=== PATIENT | female | born 1985 | race Two or more races ===

== ENCOUNTER 2021-04-10 17:24 | Emergency (ER) | payer BC, OTHER, SELFPAY ==
--- NOTE | 2021-04-10 18:25 | CR ---
Chest: Frontal view of the chest was obtained. Comparison: Prior chest x-ray of 02/16/13. Heart size and mediastinum are normal. Vague densities are seen within both lung bases. Difficult to completely exclude small area of pneumonia based on this exam. Upper lungs are clear. Bony structures appear unremarkable. Impression: 1. Slight density within both lung bases. Difficult to exclude mild pneumonia if patient has correlating symptoms. 2. Frontal chest x-ray is otherwise unremarkable. Diagnostic code #3
--- NOTE | 2021-04-10 20:30 | EDM.PDOC ---
ED HPI GENERAL MEDICAL PROBLEM - General Chief Complaint: Respiratory Problem Stated Complaint: cough sob ear pain Time Seen by Provider: 04/10/21 17:35 Source of Information: Reports: Patient, RN Notes Reviewed History Limitations: Reports: No Limitations - History of Present Illness INITIAL COMMENTS - FREE TEXT/NARRATIVE: Patient is a 36-year-old female presenting to the emergency department with complaints of a 1 month history of dry cough, left ear pain, shortness of breath, and sore throat. She reports intermittent fevers and occasional diarrhea as well. She has been evaluated in the walk-in clinic as well as by her primary care provider and was told that she had viral illness. She was tested for Covid twice and this was found to be negative. She does not feel her symptoms have improved at all over the course of last month, however she states that the fever has resolved. She has a history of hypertension but denies any other underlying chronic medical conditions. Left Ear Pain Score (Numeric/FACES): 7 - Related Data Allergies Allergy/AdvReac Type Severity Reaction Status Date / Time No Known Allergies Allergy Verified 04/10/21 17:44 Home Meds: Home Meds Azithromycin 250 mg PO ASDIRECTED 5 Days #6 tablet 04/10/21 [Rx] L.acidoph,Paracasei, B.lactis [Probiotic] 1 each PO DAILY 04/10/21 [History] Losartan [Cozaar] 50 mg PO DAILY 04/10/21 [History] desog-e.estradioL/e.estradioL [Volnea 0.15-0.02-0.01 mg Tab] 1 tab PO DAILY 04/10/21 [History] Past Medical History Cardiovascular History: Reports: Hypertension CYCLE DIRECTOR History: Reports: Hematologic History: Reports: Anemia - Infectious Disease History Infectious Disease History: Reports: Chicken Pox - Past Surgical History GI Surgical History: Reports: Appendectomy, Bariatric Procedure, Cholecystectomy, Hernia Repair/Other Female Surgical History: Reports: Breast Implant, Section, Tubal Ligation Social & Family History - Family History Family Medical History: No Pertinent Family History - Tobacco Use Tobacco Use Status *Q: Never Tobacco User - Caffeine Use Caffeine Use: Reports: Coffee, Soda - Recreational Drug Use Recreational Drug Use: No ED ROS GENERAL - Review of Systems Review Of Systems: See Below Constitutional: Reports: Fatigue. Denies: Fever, Chills HEENT: Reports: Ear Pain, Throat Pain. Denies: Throat Swelling Respiratory: Reports: Shortness of Breath, Cough. Denies: Wheezing Cardiovascular: Reports: No Symptoms Endocrine: Reports: No Symptoms GI/Abdominal: Reports: No Symptoms : Reports: No Symptoms Musculoskeletal: Reports: No Symptoms Skin: Reports: No Symptoms Neurological: Reports: No Symptoms Psychiatric: Reports: No Symptoms Hematologic/Lymphatic: Reports: No Symptoms Immunologic: Reports: No Symptoms ED EXAM, GENERAL - Physical Exam Exam: See Below Exam Limited By: No Limitations General Appearance: Alert, WD/WN, No Apparent Distress Throat/Mouth: Normal Inspection, Normal Lips, Normal Teeth, Normal Gums, Normal Oropharynx, Normal Voice, No Airway Compromise Respiratory/Chest: No Respiratory Distress, Lungs Clear, Normal Breath Sounds, No Accessory Muscle Use, Chest Non-Tender Cardiovascular: Normal Peripheral Pulses, Regular Rate, Rhythm, No Edema, No Gallop, No JVD, No Murmur, No Rub Neurological: Alert, Oriented, CN II-XII Intact, Normal Cognition, Normal Gait, Normal Reflexes, No Motor/Sensory Deficits Psychiatric: Normal Affect, Normal Mood Skin Exam: Warm, Dry, Intact, Normal Color, No Rash Course - Vital Signs Last Recorded V/S: Last Vital Signs Temp 97.7 F 04/10/21 17:40 Pulse 79 04/10/21 17:40 Resp 16 04/10/21 17:40 BP 182/106 H 04/10/21 17:40 Pulse Ox 98 04/10/21 17:40 - Orders/Labs/Meds Labs: Laboratory Tests 04/10/21 04/10/21 04/10/21 Range/Units 18:20 18:20 18:25 WBC 9.16 (3.98-10.04) K/mm3 RBC 4.33 (3.98-5.22) M/mm3 Hgb 10.9 L D (11.2-15.7) gm/dl Hct 35.1 (34.1-44.9) % MCV 81.1 D (79.4-94.8) fl MCH 25.2 L (25.6-32.2) pg MCHC 31.1 L (32.2-35.5) g/dl RDW Std Deviation 44.8 (36.4-46.3) fL Plt Count 357 (182-369) K/mm3 MPV 9.5 (9.4-12.3) fl Neut % (Auto) 52.8 (34.0-71.1) % Lymph % (Auto) 34.6 (19.3-51.7) % [place] % (Auto) 10.7 (4.7-12.5) % Eos % (Auto) 1.5 (0.7-5.8) Baso % (Auto) 0.2 (0.1-1.2) % Neut # (Auto) 4.83 (1.56-6.13) K/mm3 Lymph # (Auto) 3.17 (1.18-3.74) K/mm3 [place] # (Auto) 0.98 H (0.24-0.36) K/mm3 Eos # (Auto) 0.14 (0.04-0.36) K/mm3 Baso # (Auto) 0.02 (0.01-0.08) K/mm3 Manual Slide Review Sodium 140 (136-145) mEq/L Potassium 4.0 (3.5-5.1) mEq/L Chloride 106 (98-107) mEq/L Carbon Dioxide 26 (21-32) mEq/L Anion Gap 12.0 (5-15) BUN 14 (7-18) mg/dL Creatinine 0.8 (0.55-1.02) mg/dL Est Cr Clr Drug Dosing 91.88 mL/min Estimated GFR (MDRD) > 60 (>60) mL/min BUN/Creatinine Ratio 17.5 (14-18) Glucose 79 (70-99) mg/dL Calcium 8.5 (8.5-10.1) mg/dL Total Bilirubin 0.2 (0.2-1.0) mg/dL AST 25 (15-37) U/L ALT 15 (14-59) U/L Alkaline Phosphatase 61 (46-116) U/L C-Reactive Protein 0.5 (<1.0) mg/dL Total Protein 8.3 H (6.4-8.2) g/dl Albumin 3.3 L (3.4-5.0) g/dl Globulin 5.0 gm/dL Albumin/Globulin Ratio 0.7 L (1-2) Urine Color (Yellow) Urine Appearance (Clear) Urine pH (5.0-8.0) Ur Specific [place] (1.005-1.030) Urine Protein (Negative) Urine Glucose (UA) (Negative) Urine Ketones (Negative) Urine Occult Blood (Negative) Urine Nitrite (Negative) Urine Bilirubin (Negative) Urine Urobilinogen (0.2-1.0) Ur Leukocyte Esterase (Negative) Urine RBC (0-5) /hpf Urine WBC (0-5) /hpf Ur Squamous Epith Cells (0-5) /hpf Urine Bacteria (FEW) /hpf Urine Mucus (FEW) /hpf Urine HCG, Qual (NEGATIVE) SARS-CoV-2 RNA (ANETA) Negative (NEGATIVE) 04/10/21 04/10/21 Range/Units 18:25 18:25 WBC (3.98-10.04) K/mm3 RBC (3.98-5.22) M/mm3 Hgb (11.2-15.7) gm/dl Hct (34.1-44.9) % MCV (79.4-94.8) fl MCH (25.6-32.2) pg MCHC (32.2-35.5) g/dl RDW Std Deviation (36.4-46.3) fL Plt Count (182-369) K/mm3 MPV (9.4-12.3) fl Neut % (Auto) (34.0-71.1) % Lymph % (Auto) (19.3-51.7) % [place] % (Auto) (4.7-12.5) % Eos % (Auto) (0.7-5.8) Baso % (Auto) (0.1-1.2) % Neut # (Auto) (1.56-6.13) K/mm3 Lymph # (Auto) (1.18-3.74) K/mm3 [place] # (Auto) (0.24-0.36) K/mm3 Eos # (Auto) (0.04-0.36) K/mm3 Baso # (Auto) (0.01-0.08) K/mm3 Manual Slide Review Sodium (136-145) mEq/L Potassium (3.5-5.1) mEq/L Chloride (98-107) mEq/L Carbon Dioxide (21-32) mEq/L Anion Gap (5-15) BUN (7-18) mg/dL Creatinine (0.55-1.02) mg/dL Est Cr Clr Drug Dosing mL/min Estimated GFR (MDRD) (>60) mL/min BUN/Creatinine Ratio (14-18) Glucose (70-99) mg/dL Calcium (8.5-10.1) mg/dL Total Bilirubin (0.2-1.0) mg/dL AST (15-37) U/L ALT (14-59) U/L Alkaline Phosphatase (46-116) U/L C-Reactive Protein (<1.0) mg/dL Total Protein (6.4-8.2) g/dl Albumin (3.4-5.0) g/dl Globulin gm/dL Albumin/Globulin Ratio (1-2) Urine Color Light yellow (Yellow) Urine Appearance Clear (Clear) Urine pH 6.5 (5.0-8.0) Ur Specific [place] 1.020 (1.005-1.030) Urine Protein Negative (Negative) Urine Glucose (UA) Negative (Negative) Urine Ketones Negative (Negative) Urine Occult Blood 1+ H (Negative) Urine Nitrite Negative (Negative) Urine Bilirubin Negative (Negative) Urine Urobilinogen 0.2 (0.2-1.0) Ur Leukocyte Esterase Negative (Negative) Urine RBC 5-10 H (0-5) /hpf Urine WBC 0-5 (0-5) /hpf Ur Squamous Epith Cells 10-20 H (0-5) /hpf Urine Bacteria Few (FEW) /hpf Urine Mucus Few (FEW) /hpf Urine HCG, Qual Negative (NEGATIVE) SARS-CoV-2 RNA (ANETA) (NEGATIVE) - Re-Assessments/Exams Free Text/Narrative Re-Assessment/Exam: 04/10/21 20:27 Hematology is significant for hemoglobin low at 10.9. It is unremarkable. Urinalysis is negative for infection. Chest x-ray shows slight density within both lung bases. Difficult to exclude mild pneumonia if patient has correlating symptoms. Given patient's history of 1 month cough. She will be treated for community-acquired pneumonia with azithromycin. Prescription of this will be sent to [facility]. Discussed if symptoms fail to improve at the conclusion of treatment, she should follow-up in the clinic. Discharge instructions as documented. Departure - Departure Time of Disposition: 20:29 Disposition: Home, Self-Care 01 Condition: Good Clinical Impression: Pneumonia Qualifiers: Pneumonia type: due to unspecified organism Laterality: bilateral Lung location: lower lobe of lung Qualified Code(s): J18.9 - Pneumonia, unspecified organism - Discharge Information *PRESCRIPTION DRUG MONITORING PROGRAM REVIEWED*: No *COPY OF PRESCRIPTION DRUG MONITORING REPORT IN PATIENT BARNEY: No Prescriptions: Azithromycin 250 mg PO ASDIRECTED 5 Days #6 tablet Instructions: Community-Acquired Pneumonia, Adult Referrals: Roselyn Lucas TELEPHONE BETTING CLERK [Primary Care Provider] - Forms: ED Department Discharge Additional Instructions: Take azithromycin as prescribed. You may use Tylenol and ibuprofen as needed for discomfort. You may also continue Flonase as needed. If symptoms fail to resolve by the conclusion of treatment, please follow-up in clinic. Return to ER as needed. Sepsis Event Note (ED) - Evaluation Sepsis Screening Result: No Definite Risk
== END 2021-04-10 20:45 | disposition home or self-care (01) ==
LOC: JD.ED 17:24
DX: J18.9 Pneumonia, unspecified organism (principal); I10 Essential (primary) hypertension; Z20.822 Contact with and (suspected) exposure to COVID-19
CPT/HCPCS: 36415; 71045; 71045-26; 80053; 81001; 81025; 85025; 86140; 87804; 99283-25; U0002